=== PATIENT | female | born 1960 | race Caucasian/White ===

== ENCOUNTER 2017-03-11 08:34 | Emergency (ER) | payer BC ==
[2017-03-11] MEDS: KETOROLAC 30 MG/ML INJ. IV (09:18)
[2017-03-11] MEDS: ONDANSETRON PF 4 MG/2 ML VIAL. IV (09:18)
[2017-03-11 09:23] LABS: BILIRUBIN,URINE NEGATIVE (NEG); CLARITY,URINE CLEAR; COLOR,URINE YELLOW; GLUCOSE,URINE NEGATIVE (NEG); NITRITE,URINE NEGATIVE (NEG); PH,URINE 5.5; PROTEIN,URINE NEGATIVE (NEG-TRACE); UROBILINOGEN,URINE 0.2 mg/dL (0.2 mg/dL)
[2017-03-11 09:40] LABS: SQUAMOUS EPITHELIAL CELL,UR FEW /LPF
[2017-03-11 09:41] LABS: BACTERIA,URINE FEW /HPF (0-FEW); RBC,URINE 0 /HPF (0-2); WBC,URINE OCC /HPF (0-4)
[2017-03-11 09:50] LABS: ADD MAN DIFF? NO
[2017-03-11 09:52] LABS: BASO # 0.1 x10^3/uL (0.0-0.2); BASO % 1 % (0-3); EOS # 0.2 x10^3/uL (0.0-0.7); EOS % 2 % (0-3); HEMATOCRIT 47.9 % (36.0-47.0); HEMOGLOBIN 15.9 g/dL (12.0-15.5); LYMPH # 2.5 x10^3/uL (1.0-4.8); LYMPH % 24 % (24-48); MEAN CORPUSCULAR HEMOGLOBIN 30 pg (25-35); MEAN CORPUSCULAR HGB CONC 33 g/dL (31-37); MEAN CORPUSCULAR VOLUME 89 fL (79-100); MONO # 0.3 x10^3/uL (0.0-1.1); MONO % 3 % (0-9); NEUT # 7.3 x10^3uL (1.8-7.7); NEUT % 70 % (31-73); PLATELET COUNT 345 x10^3/uL (140-400); RED BLOOD COUNT 5.36 x10^6/uL (3.50-5.40); WHITE BLOOD COUNT 10.3 x10^3/uL (4.0-11.0)
[2017-03-11 10:14] LABS: ANION GAP 15 (6-14); BLOOD UREA NITROGEN 17 mg/dL (7-20); BUN/CREATININE RATIO 24 (6-20); CARBON DIOXIDE 22 mmol/L (21-32); CHLORIDE 105 mmol/L (98-107); CREATININE 0.7 mg/dL (0.6-1.0); GFR 85.9; GLUCOSE 155 mg/dL (70-99); POTASSIUM 4.1 mmol/L (3.5-5.1); SODIUM 142 mmol/L (136-145)
[2017-03-11 10:20] LABS: ALBUMIN 3.9 g/dL (3.4-5.0); ALK PHOS 81 U/L (46-116); ALT (SGPT) 29 U/L (14-59); AST (SGOT) 15 U/L (15-37); LIPASE 153 U/L (73-393); TOTAL BILIRUBIN 0.2 mg/dL (0.2-1.0); TOTAL PROTEIN 7.8 g/dL (6.4-8.2)
== END 2017-03-11 12:07 | disposition home or self-care (01) ==
LOC: ER 08:34
DX: R10.9 Unspecified abdominal pain (principal); R11.0 Nausea; I10 Essential (primary) hypertension; F17.200 Nicotine dependence, unspecified, uncomplicated; Z90.710 Acquired absence of both cervix and uterus; Z88.0 Allergy status to penicillin
CPT/HCPCS: 36415; 74176; 80053; 81001; 83690; 85025; 99285-25

== ENCOUNTER 2018-04-14 07:45 | Emergency (ER) | payer BC ==
[~2018-04-14] VITALS: Ht 165.1 cm; Wt 90.7 kg
[~2018-04-14 07:45] MED LIST: CYCL10TA2 PO; NAPR500T8 PO
[2018-04-14 07:46] VITALS: BP 161/90
[2018-04-14] MEDS ORDERED: IV NORMAL SALINE 1000ML BAG 1,000 ML IV ONE (08:15)
--- NOTE | 2018-04-14 08:24 | PHYS DOC ---
Past Medical History Past Medical History: GERD, Hypertension Past Surgical History: , Hysterectomy, Tonsillectomy, Other Additional Past Surgical Histo: R)thumb reconstruction. Alcohol Use: None Drug Use: None Adult General Chief Complaint Chief Complaint: DIZZY/LIGHT HEADED HPI HPI 57-year-old female presents to ER via POV with complaints of sudden onset of dizziness at 7 AM this morning. She denies any loss of consciousness or falls. Patient states she would been feeling fine prior to onset of dizziness. Patient states she hasn't had a couple of cups of coffee as well as smokes cigarettes denying any food intake prior to dizziness. Patient denies any chest pain or palpitations. Patient reports she sat down and episode lasted approximately 2 minutes. Patient states she ate a handful of cereal and took 281 mg aspirins. Patient reports dizziness subsided and she drove herself to the ER for evaluation. Patient denies any recent illness or travel. Patient denies any symptoms prior to onset of dizziness. She is currently denying any dizziness/CP/ CUETO or SOA. She reports episode caused her to feel anxious as she wasn't sure as to cause of sxs. She stated everything was spinning- she denies having eye pain , tinnitus, or ear pressure. She denies flu like sxs, urinary sxs, N/V/D, or abd pain. Pt reports she had fallen 5 days ago- slipped and fell getting out of her truck and has had rt forearm pain. She denies striking her head or having any head/ neck/back pain. Review of Systems Review of Systems Constitutional: Denies fever or chills. Reports fatigued feeling after episode as she had been anxious Eyes: Denies change in visual acuity, redness, or eye pain [] HENT: Denies nasal congestion or sore throat [] Respiratory: Denies cough or shortness of breath [] Cardiovascular: Denies CP/palpitations GI: Denies abdominal pain, nausea, vomiting, bloody stools or diarrhea [] : Denies dysuria or hematuria [] Musculoskeletal: Denies back/neck pain or joint pain [] Integument: Denies rash or skin lesions [] Neurologic: Denies headache, focal weakness or sensory changes. Reports approx. 2 min. episode of sudden dizziness with spinning sensation. Denies dizziness at time of exam Endocrine: Denies polyuria or polydipsia [] All other systems were reviewed and found to be within normal limits, except as documented in this note. Current Medications Current Medications Current Medications Medications (Trade) Dose Ordered Sig/Melecio Start Time Stop Time Status Last Admin Dose Admin Sodium Chloride 1,000 ml @ 1,000 mls/hr 1X ONCE 04/14/18 08:15 04/14/18 09:14 DC 04/14/18 08:42 1,000 MLS/HR Allergies Allergies Allergies Coded Allergies Type Severity Reaction Last Updated Verified Penicillins Allergy Intermediate Hives 03/11/17 Yes Physical Exam Physical Exam Constitutional: Well developed, well nourished, no acute distress, non-toxic appearance. Clear speech HENT: Normocephalic, atraumatic, bilateral external ears normal, oropharynx moist, no oral exudates, nose normal. [] Eyes: 3mm PERRLA, EOMI- no eye pain with movements, no nystagmus, conjunctiva normal, no discharge. [] Neck: Normal range of motion, no tenderness, supple, no stridor. [] Cardiovascular: Heart rate regular rhythm, no murmur [] Lungs & Thorax: Bilateral breath sounds clear to auscultation. Resp. equal/ nonlabored Abdomen: Bowel sounds normal, soft, no tenderness Skin: Warm, dry, no erythema, no rash. [] Back: No tenderness, no CVA tenderness. [] Extremities: No tenderness, no cyanosis, no clubbing, ROM intact, no edema. [] Neurologic: Alert and oriented X 3, normal motor function, normal sensory function, no focal deficits noted. [] Psychologic: Affect normal, judgement normal, mood normal. [] Current Patient Data Vital Signs Vital Signs Date Time Temp Pulse Resp B/P (MAP) Pulse Ox O2 Delivery O2 Flow Rate FiO2 04/14/18 07:46 97.7 16 161/90 (113) 96 Room Air 97.7 Lab Values Laboratory Tests Test 04/14/18 08:13 04/14/18 08:25 04/14/18 09:20 Glucose (Fingerstick) 108 mg/dL (70-99) H White Blood Count 7.9 x10^3/uL (4.0-11.0) Red Blood Count 5.48 x10^6/uL (3.50-5.40) H Hemoglobin 16.7 g/dL (12.0-15.5) H Hematocrit 48.5 % (36.0-47.0) H Mean Corpuscular Volume 89 fL (79-100) Mean Corpuscular Hemoglobin 30 pg (25-35) Mean Corpuscular Hemoglobin Concent 34 g/dL (31-37) Red Cell Distribution Width 13.3 % (11.5-14.5) Platelet Count 378 x10^3/uL (140-400) Neutrophils (%) (Auto) 67 % (31-73) Lymphocytes (%) (Auto) 25 % (24-48) Monocytes (%) (Auto) 5 % (0-9) Eosinophils (%) (Auto) 2 % (0-3) Basophils (%) (Auto) 1 % (0-3) Neutrophils # (Auto) 5.3 x10^3uL (1.8-7.7) Lymphocytes # (Auto) 2.0 x10^3/uL (1.0-4.8) Monocytes # (Auto) 0.4 x10^3/uL (0.0-1.1) Eosinophils # (Auto) 0.2 x10^3/uL (0.0-0.7) Basophils # (Auto) 0.1 x10^3/uL (0.0-0.2) Sodium Level 138 mmol/L (136-145) Potassium Level 4.8 mmol/L (3.5-5.1) Chloride Level 101 mmol/L (98-107) Carbon Dioxide Level 25 mmol/L (21-32) Anion Gap 12 (6-14) Blood Urea Nitrogen 20 mg/dL (7-20) Creatinine 0.7 mg/dL (0.6-1.0) Estimated GFR (Cockcroft-Gault) 85.6 BUN/Creatinine Ratio 29 (6-20) H Glucose Level 116 mg/dL (70-99) H Calcium Level 9.1 mg/dL (8.5-10.1) Magnesium Level 2.2 mg/dL (1.8-2.4) Total Bilirubin 0.4 mg/dL (0.2-1.0) Aspartate Amino Transferase (AST) 26 U/L (15-37) Alanine Aminotransferase (ALT) 35 U/L (14-59) Alkaline Phosphatase 88 U/L (46-116) Troponin I Quantitative < 0.017 ng/mL (0.000-0.055) Total Protein 7.6 g/dL (6.4-8.2) Albumin 4.1 g/dL (3.4-5.0) Albumin/Globulin Ratio 1.2 (1.0-1.7) Urine Collection Type Unknown Urine Color Yellow Urine Clarity Clear Urine pH 5.5 Urine Specific [place] 1.010 Urine Protein Negative mg/dL (NEG-TRACE) Urine Glucose (UA) Negative mg/dL (NEG) Urine Ketones (Stick) Negative mg/dL (NEG) Urine Blood Negative (NEG) Urine Nitrite Negative (NEG) Urine Bilirubin Negative (NEG) Urine Urobilinogen Dipstick 0.2 mg/dL (0.2 mg/dL) Urine Leukocyte Esterase Negative (NEG) Urine RBC 0 /HPF (0-2) Urine WBC 0 /HPF (0-4) Urine Squamous Epithelial Cells Mod /LPF Urine Bacteria Few /HPF (0-FEW) Laboratory Tests 04/14/18 08:25 Laboratory Tests 04/14/18 08:25 EKG EKG EKG obtained 04/14/18 at [address] Godinez Sinus rhythm Rate 88 No STEMI Radiology/Procedures Radiology/Procedures Examination: 3 views of the right elbow HISTORY: History of fall 5 days back, right elbow pain COMPARISON: None available FINDINGS: The alignment of the elbow joint grossly appears unremarkable. There is no acute fracture or dislocation identified. No significant elbow joint effusion identified. IMPRESSION: No acute osseous findings. If pain persists, follow-up radiograph is recommended in 5-7 days to exclude occult fracture. Electronically signed by: Dagoberto Nguyễn MD (04/14/2018 10:00 AM) [id number] DICTATED and SIGNED BY: DAGOBERTO NGUYỄN MD DATE: 04/14/18 0956 Course & Med Decision Making Course & Med Decision Making Pertinent Labs and Imaging studies reviewed. (See chart for details) Accu check obtained by RN during this provider's initial exam- BS 108. 0925: On reevaluation patient denies having any episodes of dizziness or other symptoms while in the ER. Patient remains alert and oriented 3 and in no visible distress at this time. Test results were discussed with labs unremarkable. EKG with no acute ST elevation or STEMI and troponin was <0.017. On further discussion patient is requesting right elbow x-ray due to ongoing pain from her fall 5 days ago so will order that. Patient is ambulatory at bedside to use bathroom with steady unassisted gait. Again discussed test results with patient. Elbow x-ray was negative for acute findings. Jimbo wrap was applied to right elbow by this provider she remained PMS intact prior to and following Jimbo wrap application. Discussed probable dehydration related dizziness as patient reported she had minimal water intake over the past couple of days and is a daily smoker as well as drink a couple of cups of coffee this morning. Patient was given normal saline 1 L bolus. Patient continued to deny any symptoms while in the ER-. She has had no dizziness or chest pain. EKG was negative for ischemic change and troponin was negative. Advised patient if symptoms reoccur or with concerns patient to follow-up with primary care physician for reevaluation and further care. Education provided on signs and symptoms to return to ER for an discharge instructions were discussed. Will provide orthopedic information on discharge paperwork for follow -up on right elbow pain. At time of discharge discussion patient was in no visible distress remains nontoxic in appearance. She was a and O 3 while in the ER with no focal neuro deficits. Patient had not yet taken her blood pressure medication and her pressure was 161/90 at time of triage- she was advised to take that when she got home as well as eat well-balanced meal. Dragon Disclaimer Dragon Disclaimer This electronic medical record was generated, in whole or in part, using a voice recognition dictation system. Departure Departure Impression: Primary Impression: Dizziness Additional Impression: Elbow pain, right Disposition: 01 HOME, SELF-CARE Condition: STABLE Referrals: IVA CAES DO (PCP) SHELBI TRIANA MD Patient Instructions: Dizziness, Elastic Bandage and RICE, Elbow Contusion Additional Instructions: Your dizziness may have been caused due to dehydration. Increase fluid/water intake avoid smoking and large amount of caffeinated products. If symptoms persist follow-up with primary care physician for reevaluation and further care. If right elbow pain persist follow-up with orthopedic doctor for reevaluation and further care. Problem Qualifiers ION ORTIZ APRN Apr 14, 2018 08:24
[2018-04-14 08:37] LABS: BASO # 0.1 x10^3/uL (0.0-0.2); BASO % 1 % (0-3); EOS # 0.2 x10^3/uL (0.0-0.7); EOS % 2 % (0-3); HEMATOCRIT 48.5 % (36.0-47.0); HEMOGLOBIN 16.7 g/dL (12.0-15.5); LYMPH % 25 % (24-48); MEAN CORPUSCULAR HEMOGLOBIN 30 pg (25-35); MEAN CORPUSCULAR HGB CONC 34 g/dL (31-37); MEAN CORPUSCULAR VOLUME 89 fL (79-100); MONO # 0.4 x10^3/uL (0.0-1.1); MONO % 5 % (0-9); NEUT # 5.3 x10^3uL (1.8-7.7); NEUT % 67 % (31-73); PLATELET COUNT 378 x10^3/uL (140-400); RED BLOOD COUNT 5.48 x10^6/uL (3.50-5.40); RED CELL DISTRIBUTION WIDTH 13.3 % (11.5-14.5); WHITE BLOOD COUNT 7.9 x10^3/uL (4.0-11.0)
[2018-04-14 08:48] LABS: CALCIUM 9.1 mg/dL (8.5-10.1); CREATININE 0.7 mg/dL (0.6-1.0); GFR 85.6; POTASSIUM 4.8 mmol/L (3.5-5.1)
[2018-04-14 08:54] LABS: ALBUMIN 4.1 g/dL (3.4-5.0); ALBUMIN/GLOBULIN RATIO 1.2 (1.0-1.7); MAGNESIUM 2.2 mg/dL (1.8-2.4); TOTAL BILIRUBIN 0.4 mg/dL (0.2-1.0); TOTAL PROTEIN 7.6 g/dL (6.4-8.2)
[2018-04-14 09:45] LABS: BILIRUBIN,URINE NEGATIVE (NEG); CLARITY,URINE CLEAR; COLOR,URINE YELLOW; NITRITE,URINE NEGATIVE (NEG); PH,URINE 5.5; PROTEIN,URINE NEGATIVE (NEG-TRACE); UROBILINOGEN,URINE 0.2 mg/dL (0.2 mg/dL)
[2018-04-14 09:59] LABS: BACTERIA,URINE FEW /HPF (0-FEW); RBC,URINE 0 /HPF (0-2); SQUAMOUS EPITHELIAL CELL,UR MOD /LPF; WBC,URINE 0 /HPF (0-4)
--- NOTE | 2018-04-14 10:03 | RAD ---
Examination: 3 views of the right elbow HISTORY: History of fall 5 days back, right elbow pain COMPARISON: None available FINDINGS: The alignment of the elbow joint grossly appears unremarkable. There is no acute fracture or dislocation identified. No significant elbow joint effusion identified. IMPRESSION: No acute osseous findings. If pain persists, follow-up radiograph is recommended in 5-7 days to exclude occult fracture. Electronically signed by: Dagoberto Nguyễn MD (04/14/2018 10:00 AM) [facility]
--- NOTE | 2018-04-14 14:11 | EKG ---
[facility] [address] [place] [address] Test Date: 2018-04-14 Test Time: 08:05:54 Pat Name: GEOVANY STEPHENS Department: Room: Gender: F [employer] Machine Operator: : [id number] Requested By: ION ORTIZ Order Number: [id number] Reading MD: Oscar Dockery Measurements Intervals [place] Rate: 88 P: 40 OR: 198 QRS: 26 QRSD: 90 T: 36 QT: 370 QTc: 451 Interpretive Statements SINUS RHYTHM NO SPECIFIC ECG ABNORMALITIES RI6.01 No previous ECG available for comparison Electronically Signed On 04-22-2018 10:44:30 LOAN COORDINATOR by Oscar Dockery
== END 2018-04-14 10:36 | disposition home or self-care (01) ==
LOC: ER 07:45
DX: R42 Dizziness and giddiness (principal); M25.521 Pain in right elbow; K21.9 Gastro-esophageal reflux disease without esophagitis; I10 Essential (primary) hypertension; Z98.890 Other specified postprocedural states; Z90.710 Acquired absence of both cervix and uterus; Z90.89 Acquired absence of other organs; Z88.0 Allergy status to penicillin; W01.0XXA Fall on same level from slipping, tripping and stumbling without subsequent striking against object, initial encounter; Y93.89 Activity, other specified; Y92.89 Other specified places as the place of occurrence of the external cause; Y99.8 Other external cause status
CPT/HCPCS: 36415; 73080; 80053; 81001; 82962; 83735; 84484; 85025; 93005; 96360; 99284; J7030